=== PATIENT | male | born 1965 | race Caucasian/White ===

== ENCOUNTER 2019-11-17 06:50 | Inpatient (IN) ==
[~2019-11-17 06:50] MED LIST: LACTATED RINGERS 1,000 ML IV SCH
[2019-11-17] MEDS ORDERED: ceFAZolin 2,000 MG in PREMIX 1 EACH IV ONE (07:00)
[2019-11-17 07:20] LABS: Basophils % 0.3 % (0.0-0.8); Eosinophils % 0.2 % (0.00-10.9); Hematocrit 43.4 VOL% (42.0-52.0); Hemoglobin 14.5 GM/DL (14.0-18.0); Immature Granulocytes % 0.5 %; Immature Granulocytes Absolute 0.06 #; Lymphocytes # 2.1 10*3/uL (1.4-4.0); Lymphocytes % 17.2 % (21.2-54.2); Mean Corpuscular HGB Conc 33.4 GM/DL (32-36); Mean Corpuscular Volume 89.7 FL (87-102); Mean Platelet Volume 9.7 FL (9.6-12.0); Monocytes % 10.2 % (1.7-12.7); Neutrophils % 71.6 % (38.7-73.9); Platelet Count 237 T/CUMM (130-400); Red Blood Count 4.84 MC/CUMM (3.8-5.5); Red Cell Distribution Width 12.3 % (9.3-17.3); White Blood Count 12.4 T/CUMM (4-12)
[2019-11-17] MEDS ORDERED: GABAPENTIN 400 MG CAPSULE PO ONE (07:22)
[2019-11-17] MEDS ORDERED: FAMOTIDINE 20 MG TABLET PO ONE (07:22)
[2019-11-17 07:41] LABS: Calcium 9.3 MG/DL (8.5-10.1); Osmolality,Calculated 269.2 MOS/KG (273-304)
[2019-11-17] MEDS ORDERED: GABAPENTIN 400 MG CAPSULE ONE (07:58)
[2019-11-17] MEDS ORDERED: FAMOTIDINE 20 MG TABLET ONE (07:59)
[2019-11-17] MEDS ORDERED: DEXMEDETOMIDINE 200 MCG/2 ML VIAL ONE (10:41)
[2019-11-17] MEDS ORDERED: LIDOCAINE 1% 20 ML VIAL ONE (10:49)
[2019-11-17] MEDS ORDERED: DEXTROSE 50% 25 GM/50 ML VIAL IV PRN (12:13)
[2019-11-17] MEDS ORDERED: ONDANSETRON 4 MG/2 ML VIAL IV PRN (12:13)
[2019-11-17] MEDS ORDERED: PROMETHAZINE 25 MG/1 ML VIAL IM PRN (12:13)
[2019-11-17] MEDS ORDERED: GLUCAGON 1 MG VIAL IM PRN (12:13)
[2019-11-17] MEDS ORDERED: HYDROmorphone 2 MG/1 ML VIAL IV PRN (12:13)
[2019-11-17 12:30] LABS: Basophils % 0.4 % (0.0-0.8); Eosinophils % 0.3 % (0.00-10.9); Hemoglobin 12.6 GM/DL (14.0-18.0); Immature Granulocytes % 0.4 %; Immature Granulocytes Absolute 0.04 #; Lymphocytes # 1.9 10*3/uL (1.4-4.0); Lymphocytes % 18.4 % (21.2-54.2); Mean Corpuscular HGB Conc 33.2 GM/DL (32-36); Mean Corpuscular Volume 92.2 FL (87-102); Mean Platelet Volume 9.8 FL (9.6-12.0); Monocytes % 10.7 % (1.7-12.7); Neutrophils % 69.8 % (38.7-73.9); Platelet Count 210 T/CUMM (130-400); Red Blood Count 4.12 MC/CUMM (3.8-5.5); Red Cell Distribution Width 12.4 % (9.3-17.3); White Blood Count 10.1 T/CUMM (4-12)
[2019-11-17] MEDS: INSULIN REGULAR 100 UNIT/ML SUBCUT SCH ×3 (12:39→20:22)
[2019-11-17 12:46] LABS: Calcium 8.6 MG/DL (8.5-10.1)
[2019-11-17] MEDS: GABAPENTIN 100 MG CAPSULE PO SCH ×3 (13:19→20:22)
[2019-11-17] MEDS: LACTATED RINGERS 1,000 ML IV SCH ×2 (13:23→22:35)
[2019-11-17] MEDS ORDERED: MIDAZOLAM 2 MG/2 ML VIAL ONE (15:15)
[2019-11-17] MEDS ORDERED: fentaNYL 100 MCG/2 ML VIAL ONE (15:15)
[2019-11-17] MEDS: CLINDAMYCIN INJ 900 MG in PREMIX 1 EACH IV SCH (16:54)
[2019-11-17] MEDS: ATORVASTATIN 40 MG TABLET PO SCH (20:23)
[2019-11-17] MEDS: SIMVASTATIN 10 MG TABLET PO SCH (20:23)
[2019-11-18] MEDS: CLINDAMYCIN INJ 900 MG in PREMIX 1 EACH IV SCH (03:15)
[2019-11-18] MEDS ORDERED: CLINDAMYCIN INJ 900 MG in PREMIX 1 EACH IV SCH (03:30)
[2019-11-18] MEDS: ENOXAPARIN 40 MG/0.4 ML SYRINGE SUBCUT SCH (04:55)
[2019-11-18] MEDS: LACTATED RINGERS 1,000 ML IV SCH ×2 (05:33→14:42)
[2019-11-18 06:16] LABS: Basophils # 0.1 10*3/uL (0.0-0.2); Basophils % 0.5 % (0.0-0.8); Eosinophils # 0.1 10*3/uL (0.0-0.87); Eosinophils % 0.5 % (0.00-10.9); Hematocrit 39.7 VOL% (42.0-52.0); Immature Granulocytes % 0.5 %; Immature Granulocytes Absolute 0.05 #; Lymphocytes # 2.3 10*3/uL (1.4-4.0); Lymphocytes % 24.2 % (21.2-54.2); Mean Corpuscular HGB Conc 32.7 GM/DL (32-36); Mean Corpuscular Volume 91.5 FL (87-102); Mean Platelet Volume 9.9 FL (9.6-12.0); Monocytes % 11.8 % (1.7-12.7); Neutrophils % 62.5 % (38.7-73.9); Platelet Count 222 T/CUMM (130-400); Red Blood Count 4.34 MC/CUMM (3.8-5.5); Red Cell Distribution Width 12.3 % (9.3-17.3); White Blood Count 9.3 T/CUMM (4-12)
[2019-11-18 06:37] LABS: Calcium 9.1 MG/DL (8.5-10.1); Osmolality,Calculated 272.1 MOS/KG (273-304)
[2019-11-18] MEDS: INSULIN REGULAR 100 UNIT/ML SUBCUT SCH ×4 (09:09→21:21)
[2019-11-18] MEDS: GABAPENTIN 100 MG CAPSULE PO SCH ×4 (09:10→21:21)
[2019-11-18] MEDS: CITALOPRAM 40 MG TABLET PO SCH (09:10)
[2019-11-18] MEDS: CLOPIDOGREL 75 MG TABLET PO SCH (09:11)
[2019-11-18] MEDS: ATORVASTATIN 40 MG TABLET PO SCH (21:21)
[2019-11-18] MEDS: SIMVASTATIN 10 MG TABLET PO SCH (21:21)
[2019-11-19] MEDS: LACTATED RINGERS 1,000 ML IV SCH ×3 (00:18→16:54)
[2019-11-19] MEDS: ENOXAPARIN 40 MG/0.4 ML SYRINGE SUBCUT SCH (05:36)
[2019-11-19] MEDS: GABAPENTIN 100 MG CAPSULE PO SCH ×4 (09:30→20:51)
[2019-11-19] MEDS: CITALOPRAM 40 MG TABLET PO SCH (09:30)
[2019-11-19] MEDS: CLOPIDOGREL 75 MG TABLET PO SCH (09:30)
[2019-11-19] MEDS: INSULIN REGULAR 100 UNIT/ML SUBCUT SCH ×4 (09:30→23:05)
[2019-11-19] MEDS: ATORVASTATIN 40 MG TABLET PO SCH (20:51)
[2019-11-19] MEDS: SIMVASTATIN 10 MG TABLET PO SCH (20:53)
[2019-11-20] MEDS: LACTATED RINGERS 1,000 ML IV SCH ×3 (01:17→18:29)
[2019-11-20] MEDS: ENOXAPARIN 40 MG/0.4 ML SYRINGE SUBCUT SCH (05:09)
[2019-11-20] MEDS: CIPROFLOXACIN 500 MG TABLET PO SCH ×2 (10:04→20:17)
[2019-11-20] MEDS: NICOTINE 14 MG/24 HR PATCH TRANSDERM SCH (10:04)
[2019-11-20] MEDS: INSULIN REGULAR 100 UNIT/ML SUBCUT SCH ×4 (10:04→21:50)
[2019-11-20] MEDS: CLOPIDOGREL 75 MG TABLET PO SCH (10:05)
[2019-11-20] MEDS: GABAPENTIN 100 MG CAPSULE PO SCH ×4 (10:05→20:17)
[2019-11-20] MEDS: ATORVASTATIN 40 MG TABLET PO SCH (20:17)
[2019-11-20] MEDS: SIMVASTATIN 10 MG TABLET PO SCH (20:17)
[2019-11-21] MEDS: LACTATED RINGERS 1,000 ML IV SCH ×3 (02:30→16:07)
[2019-11-21] MEDS: ENOXAPARIN 40 MG/0.4 ML SYRINGE SUBCUT SCH (05:38)
[2019-11-21] MEDS: GABAPENTIN 100 MG CAPSULE PO SCH ×4 (08:45→20:59)
[2019-11-21] MEDS: NICOTINE 14 MG/24 HR PATCH TRANSDERM SCH (08:45)
[2019-11-21] MEDS: CIPROFLOXACIN 500 MG TABLET PO SCH ×2 (08:46→20:59)
[2019-11-21] MEDS: CLOPIDOGREL 75 MG TABLET PO SCH (08:46)
[2019-11-21] MEDS: INSULIN REGULAR 100 UNIT/ML SUBCUT SCH ×4 (10:55→20:59)
[2019-11-21] MEDS: ATORVASTATIN 40 MG TABLET PO SCH (20:59)
[2019-11-21] MEDS: SIMVASTATIN 10 MG TABLET PO SCH (20:59)
[2019-11-22] MEDS: LACTATED RINGERS 1,000 ML IV SCH ×2 (00:39→08:28)
[2019-11-22] MEDS: ENOXAPARIN 40 MG/0.4 ML SYRINGE SUBCUT SCH (05:29)
[2019-11-22] MEDS: INSULIN REGULAR 100 UNIT/ML SUBCUT SCH ×2 (08:20→12:31)
[2019-11-22] MEDS: CLOPIDOGREL 75 MG TABLET PO SCH (08:22)
[2019-11-22] MEDS: CIPROFLOXACIN 500 MG TABLET PO SCH (08:22)
[2019-11-22] MEDS: GABAPENTIN 100 MG CAPSULE PO SCH (08:22)
[2019-11-22] MEDS: NICOTINE 14 MG/24 HR PATCH TRANSDERM SCH (08:23)
[2019-11-22 12:31] VITALS: BP 132/76
== END 2019-11-22 12:55 | disposition hospice, home (50) | DRG 475 ==
LOC: N.OR 06:50 → N.SDSINP 06:53 → N.3E 12:08
PROVIDERS: ADMIT Surgery; ATTEND Surgery

== ENCOUNTER 2020-05-08 19:22 | Inpatient (IN) ==
[2020-05-08 19:59] LABS: Basophils # 0.1 10*3/uL (0.0-0.2); Basophils % 0.4 % (0.0-0.8); Eosinophils # 0.2 10*3/uL (0.0-0.87); Eosinophils % 1.2 % (0.00-10.9); Hematocrit 33.4 VOL% (42.0-52.0); Hemoglobin 10.6 GM/DL (14.0-18.0); Immature Granulocytes % 0.8 %; Lymphocytes # 2.3 10*3/uL (1.4-4.0); Lymphocytes % 18.1 % (21.2-54.2); Mean Corpuscular HGB Conc 31.7 GM/DL (32-36); Mean Corpuscular Volume 92.5 FL (87-102); Mean Platelet Volume 9.4 FL (9.6-12.0); Monocytes % 7.4 % (1.7-12.7); Neutrophils % 72.1 % (38.7-73.9); Platelet Count 401 T/CUMM (130-400); Red Blood Count 3.61 MC/CUMM (3.8-5.5); Red Cell Distribution Width 13.8 % (9.3-17.3); White Blood Count 12.6 T/CUMM (4-12)
[2020-05-08] MEDS ORDERED: ONDANSETRON 4 MG/2 ML VIAL IV PRN (20:01)
[2020-05-08] MEDS ORDERED: DEXTROSE 50% 25 GM/50 ML VIAL IV PRN (20:03)
[2020-05-08] MEDS ORDERED: GLUCAGON 1 MG VIAL IM PRN (20:03)
[2020-05-08 20:23] LABS: Albumin 2.5 G/DL (3.4-5.0); Bilirubin,Total 0.9 MG/DL (0.2-1.0); Calcium 8.8 MG/DL (8.5-10.1); Osmolality,Calculated 273.8 MOS/KG (273-304); Potassium 4.4 MMOL/L (3.5-5.1); Total Protein 7.9 G/DL (6.4-8.3)
[2020-05-08] MEDS: DEXTROSE 5% NACL 0.45% 1,000 ML IV SCH (21:05)
[2020-05-08] MEDS: VANCOMYCIN INJ 750 MG in SODIUM CHLORIDE 0.9% 250 ML IV SCH (22:53)
[2020-05-08] MEDS: INSULIN REGULAR 100 UNIT/ML SUBCUT SCH (23:47)
[2020-05-09] MEDS ORDERED: INFLUENZA VIRUS VACCINE 0.5 ML SYRINGE IM ONE (01:52)
[2020-05-09] MEDS ORDERED: PNEUMOCOCCAL VACCINE (13 VALENT) 0.5 ML SYRINGE IM ONE (01:52)
[2020-05-09] MEDS: DEXTROSE 5% NACL 0.45% 1,000 ML IV SCH ×3 (04:50→21:42)
[2020-05-09] MEDS: INSULIN REGULAR 100 UNIT/ML SUBCUT SCH ×3 (05:32→17:34)
[2020-05-09 05:41] LABS: Basophils % 0.4 % (0.0-0.8); Eosinophils # 0.2 10*3/uL (0.0-0.87); Eosinophils % 1.7 % (0.00-10.9); Hematocrit 33.5 VOL% (42.0-52.0); Hemoglobin 10.6 GM/DL (14.0-18.0); Immature Granulocytes % 0.8 %; Immature Granulocytes Absolute 0.09 #; Lymphocytes # 1.9 10*3/uL (1.4-4.0); Lymphocytes % 17.3 % (21.2-54.2); Mean Corpuscular HGB Conc 31.6 GM/DL (32-36); Mean Platelet Volume 9.2 FL (9.6-12.0); Monocytes % 8.8 % (1.7-12.7); Platelet Count 381 T/CUMM (130-400); Red Blood Count 3.64 MC/CUMM (3.8-5.5); Red Cell Distribution Width 13.6 % (9.3-17.3); White Blood Count 10.9 T/CUMM (4-12)
[2020-05-09 06:07] LABS: Alanine Aminotransferase 103 U/L (16-61); Albumin 2.4 G/DL (3.4-5.0); Alkaline Phosphatase 82 U/L (45-117); Aspartate Amino Transferase 73 U/L (0-37); Bilirubin,Total < 0.39 MG/DL (0.2-1.0); Blood Urea Nitrogen 10 MG/DL (7-18); Calcium 8.7 MG/DL (8.5-10.1); Carbon Dioxide 25 MMOL/L (21-32); Estimated Glom Filtration Rate 125 ML/MIN; Glucose 159 MG/DL (74-106); Osmolality,Calculated 276.7 MOS/KG (273-304); Potassium 4.3 MMOL/L (3.5-5.1); Sodium 138 MMOL/L (136-145); Total Protein 7.6 G/DL (6.4-8.3)
[2020-05-09] MEDS ORDERED: MIDAZOLAM 2 MG/2 ML VIAL ONE (07:41)
[2020-05-09] MEDS ORDERED: propofoL 200 MG/20 ML VIAL IV ONE ×2 (07:41→08:57)
[2020-05-09] MEDS ORDERED: fentaNYL 100 MCG/2 ML VIAL ONE (07:41)
[2020-05-09] MEDS ORDERED: LIDOCAINE 2% 5 ML VIAL ONE (07:41)
[2020-05-09] MEDS ORDERED: LIDOCAINE 1% 20 ML VIAL ONE (08:00)
[2020-05-09] MEDS ORDERED: LIDOCAINE 1%/EPI INJ 20 ML VIAL ONE (08:00)
[2020-05-09] MEDS ORDERED: BUPIVACAINE MPF 0.25% 30 ML VIAL ONE (08:00)
[2020-05-09] MEDS: PANTOPRAZOLE 40 MG VIAL IV SCH (08:03)
[2020-05-09] MEDS ORDERED: LACTATED RINGERS 1,000 ML IV SCH (08:30)
[2020-05-09] MEDS ORDERED: ONDANSETRON 4 MG/2 ML VIAL IV PRN (09:47)
[2020-05-09] MEDS: HYDROmorphone 2 MG/1 ML VIAL IV PRN ×2 (09:50→09:55)
[2020-05-09] MEDS: VANCOMYCIN INJ 750 MG in SODIUM CHLORIDE 0.9% 250 ML IV SCH (10:29)
[2020-05-09] MEDS: PIPERACILLIN/TAZOBACTAM 3,375 MG in SODIUM CHLORIDE 0.9% 100 ML IV SCH ×2 (12:18→20:43)
[2020-05-09] MEDS: GABAPENTIN 100 MG CAPSULE PO SCH ×3 (14:45→20:15)
[2020-05-09] MEDS: VANCOMYCIN INJ 1,500 MG in SODIUM CHLORIDE 0.9% 500 ML IV SCH (16:41)
[2020-05-09] MEDS: ATORVASTATIN 40 MG TABLET PO SCH (20:43)
[2020-05-10] MEDS: INSULIN REGULAR 100 UNIT/ML SUBCUT SCH ×4 (00:22→18:19)
[2020-05-10] MEDS: PIPERACILLIN/TAZOBACTAM 3,375 MG in SODIUM CHLORIDE 0.9% 100 ML IV SCH ×3 (04:48→20:45)
[2020-05-10] MEDS: VANCOMYCIN INJ 1,500 MG in SODIUM CHLORIDE 0.9% 500 ML IV SCH ×2 (04:49→16:46)
[2020-05-10] MEDS: CITALOPRAM 40 MG TABLET PO SCH (08:45)
[2020-05-10] MEDS: GABAPENTIN 100 MG CAPSULE PO SCH ×4 (08:45→20:47)
[2020-05-10] MEDS: lisinopriL 20 MG TABLET PO SCH (08:45)
[2020-05-10] MEDS: ASCORBIC ACID 500 MG TABLET PO SCH (08:45)
[2020-05-10] MEDS: DEXTROSE 5% NACL 0.45% 1,000 ML IV SCH (08:47)
[2020-05-10] MEDS: PANTOPRAZOLE 40 MG VIAL IV SCH (09:50)
[2020-05-10] MEDS: ATORVASTATIN 40 MG TABLET PO SCH (20:47)
[2020-05-11] MEDS: INSULIN REGULAR 100 UNIT/ML SUBCUT SCH ×4 (01:01→17:00)
[2020-05-11] MEDS: VANCOMYCIN INJ 1,500 MG in SODIUM CHLORIDE 0.9% 500 ML IV SCH ×2 (03:25→16:14)
[2020-05-11] MEDS: PIPERACILLIN/TAZOBACTAM 3,375 MG in SODIUM CHLORIDE 0.9% 100 ML IV SCH ×2 (08:59→16:23)
[2020-05-11] MEDS: ASCORBIC ACID 500 MG TABLET PO SCH (09:01)
[2020-05-11] MEDS: lisinopriL 20 MG TABLET PO SCH (09:01)
[2020-05-11] MEDS: PANTOPRAZOLE 40 MG VIAL IV SCH (09:01)
[2020-05-11] MEDS: CITALOPRAM 40 MG TABLET PO SCH (09:02)
[2020-05-11] MEDS: GABAPENTIN 100 MG CAPSULE PO SCH ×4 (09:09→20:27)
[2020-05-11] MEDS: ATORVASTATIN 40 MG TABLET PO SCH (20:27)
[2020-05-12] MEDS: PIPERACILLIN/TAZOBACTAM 3,375 MG in SODIUM CHLORIDE 0.9% 100 ML IV SCH ×3 (00:44→18:30)
[2020-05-12] MEDS: INSULIN REGULAR 100 UNIT/ML SUBCUT SCH ×4 (01:44→18:31)
[2020-05-12] MEDS: VANCOMYCIN INJ 1,500 MG in SODIUM CHLORIDE 0.9% 500 ML IV SCH ×2 (04:56→16:09)
[2020-05-12] MEDS: GABAPENTIN 100 MG CAPSULE PO SCH ×4 (08:23→21:11)
[2020-05-12] MEDS: PANTOPRAZOLE 40 MG VIAL IV SCH (08:23)
[2020-05-12] MEDS: ASCORBIC ACID 500 MG TABLET PO SCH (08:23)
[2020-05-12] MEDS: CITALOPRAM 40 MG TABLET PO SCH (08:23)
[2020-05-12] MEDS: lisinopriL 20 MG TABLET PO SCH (08:23)
[2020-05-12] MEDS: ATORVASTATIN 40 MG TABLET PO SCH (21:11)
[2020-05-13] MEDS: INSULIN REGULAR 100 UNIT/ML SUBCUT SCH ×4 (00:20→18:20)
[2020-05-13] MEDS: PIPERACILLIN/TAZOBACTAM 3,375 MG in SODIUM CHLORIDE 0.9% 100 ML IV SCH ×2 (00:21→09:49)
[2020-05-13] MEDS: VANCOMYCIN INJ 1,500 MG in SODIUM CHLORIDE 0.9% 500 ML IV SCH (04:50)
[2020-05-13 05:50] LABS: Basophils % 0.4 % (0.0-0.8); Eosinophils # 0.3 10*3/uL (0.0-0.87); Eosinophils % 2.8 % (0.00-10.9); Hematocrit 32.6 VOL% (42.0-52.0); Hemoglobin 10.6 GM/DL (14.0-18.0); Immature Granulocytes % 1.8 %; Lymphocytes # 2.6 10*3/uL (1.4-4.0); Mean Corpuscular HGB Conc 32.5 GM/DL (32-36); Mean Corpuscular Volume 89.6 FL (87-102); Mean Platelet Volume 8.9 FL (9.6-12.0); Monocytes % 10.2 % (1.7-12.7); Neutrophils % 61.8 % (38.7-73.9); Platelet Count 443 T/CUMM (130-400); Red Blood Count 3.64 MC/CUMM (3.8-5.5); Red Cell Distribution Width 13.7 % (9.3-17.3); White Blood Count 11.4 T/CUMM (4-12)
[2020-05-13 06:12] LABS: Calcium 8.8 MG/DL (8.5-10.1); Osmolality,Calculated 278.5 MOS/KG (273-304); Potassium 3.7 MMOL/L (3.5-5.1)
[2020-05-13] MEDS ORDERED: DEXTROSE 50% 25 GM/50 ML VIAL IV PRN (08:25)
[2020-05-13] MEDS ORDERED: GLUCAGON 1 MG VIAL IM PRN (08:25)
[2020-05-13] MEDS: ASCORBIC ACID 500 MG TABLET PO SCH (09:47)
[2020-05-13] MEDS: CIPROFLOXACIN 500 MG TABLET PO SCH ×2 (09:47→21:31)
[2020-05-13] MEDS: lisinopriL 20 MG TABLET PO SCH (09:47)
[2020-05-13] MEDS: GABAPENTIN 100 MG CAPSULE PO SCH ×4 (09:48→21:31)
[2020-05-13] MEDS: PANTOPRAZOLE 40 MG VIAL IV SCH (09:48)
[2020-05-13] MEDS: CITALOPRAM 40 MG TABLET PO SCH (09:48)
[2020-05-13] MEDS: ATORVASTATIN 40 MG TABLET PO SCH (21:31)
[2020-05-14] MEDS: INSULIN REGULAR 100 UNIT/ML SUBCUT SCH ×4 (02:28→17:45)
[2020-05-14] MEDS: CIPROFLOXACIN 500 MG TABLET PO SCH ×2 (08:56→20:33)
[2020-05-14] MEDS: CITALOPRAM 40 MG TABLET PO SCH (08:56)
[2020-05-14] MEDS: PANTOPRAZOLE 40 MG VIAL IV SCH (08:57)
[2020-05-14] MEDS: ASCORBIC ACID 500 MG TABLET PO SCH (08:57)
[2020-05-14] MEDS: lisinopriL 20 MG TABLET PO SCH (08:57)
[2020-05-14] MEDS: GABAPENTIN 100 MG CAPSULE PO SCH ×4 (08:57→20:33)
[2020-05-14] MEDS ORDERED: ROPIVACAINE 0.5% 30 ML VIAL ONE (11:11)
[2020-05-14] MEDS ORDERED: LIDOCAINE 1% 5 ML VIAL ONE (11:11)
[2020-05-14] MEDS ORDERED: MIDAZOLAM 2 MG/2 ML VIAL ONE (11:13)
[2020-05-14] MEDS ORDERED: fentaNYL 100 MCG/2 ML VIAL ONE (11:13)
[2020-05-14] MEDS ORDERED: LACTATED RINGERS 1,000 ML IV SCH (11:30)
[2020-05-14] MEDS ORDERED: ePHEDrine 50 MG/ML VIAL ONE (12:00)
[2020-05-14] MEDS ORDERED: propofoL 200 MG/20 ML VIAL IV ONE (12:08)
[2020-05-14] MEDS ORDERED: LIDOCAINE 2% 5 ML VIAL ONE (12:08)
[2020-05-14] MEDS ORDERED: PHENYLEPHRINE 1 MG/10 ML SYRINGE IV ONE (12:08)
[2020-05-14] MEDS ORDERED: LACTATED RINGERS 1,000 ML IV ONE (12:13)
[2020-05-14] MEDS ORDERED: ONDANSETRON 4 MG/2 ML VIAL ONE (12:36)
[2020-05-14] MEDS ORDERED: ACETAMINOPHEN 1,000 MG/100 ML VIAL IV ONE (12:49)
[2020-05-14] MEDS ORDERED: SEVOFLURANE 1 UNIT/15 MINUTE INH ONE (12:53)
[2020-05-14] MEDS ORDERED: HYDROmorphone 2 MG/1 ML VIAL IV PRN (13:11)
[2020-05-14] MEDS ORDERED: ONDANSETRON 4 MG/2 ML VIAL IV PRN (13:11)
[2020-05-14] MEDS ORDERED: MEPERIDINE 25 MG/1 ML VIAL IV PRN (13:11)
[2020-05-14] MEDS ORDERED: diphenhydrAMINE 50 MG/1 ML VIAL IV PRN (13:11)
[2020-05-14] MEDS ORDERED: PROMETHAZINE INJ 25 MG in SODIUM CHLORIDE 0.9% 50 ML IV PRN (13:11)
[2020-05-14] MEDS: LACTATED RINGERS 1,000 ML IV SCH ×2 (13:50→21:49)
[2020-05-14] MEDS: ATORVASTATIN 40 MG TABLET PO SCH (20:33)
[2020-05-14] MEDS: HYDROmorphone 2 MG/1 ML VIAL IV PRN (22:41)
[2020-05-15] MEDS: LACTATED RINGERS 1,000 ML IV SCH (00:48)
[2020-05-15] MEDS: INSULIN REGULAR 100 UNIT/ML SUBCUT SCH ×4 (00:48→18:40)
[2020-05-15] MEDS: HYDROmorphone 2 MG/1 ML VIAL IV PRN ×4 (04:19→16:25)
[2020-05-15 06:34] LABS: Basophils # 0.1 10*3/uL (0.0-0.2); Basophils % 0.3 % (0.0-0.8); Eosinophils # 0.2 10*3/uL (0.0-0.87); Eosinophils % 1.1 % (0.00-10.9); Hematocrit 35.2 VOL% (42.0-52.0); Hemoglobin 11.3 GM/DL (14.0-18.0); Immature Granulocytes % 1.2 %; Immature Granulocytes Absolute 0.22 #; Lymphocytes # 2.1 10*3/uL (1.4-4.0); Lymphocytes % 11.5 % (21.2-54.2); Mean Corpuscular HGB Conc 32.1 GM/DL (32-36); Mean Corpuscular Volume 91.7 FL (87-102); Mean Platelet Volume 9.2 FL (9.6-12.0); Monocytes % 8.2 % (1.7-12.7); Neutrophils % 77.7 % (38.7-73.9); Platelet Count 487 T/CUMM (130-400); Red Blood Count 3.84 MC/CUMM (3.8-5.5); Red Cell Distribution Width 14.3 % (9.3-17.3); White Blood Count 18.6 T/CUMM (4-12)
[2020-05-15 06:56] LABS: Calcium 9.5 MG/DL (8.5-10.1); Osmolality,Calculated 281.8 MOS/KG (273-304); Potassium 4.5 MMOL/L (3.5-5.1)
[2020-05-15] MEDS: CIPROFLOXACIN 500 MG TABLET PO SCH ×2 (09:01→21:37)
[2020-05-15] MEDS: CITALOPRAM 40 MG TABLET PO SCH (09:01)
[2020-05-15] MEDS: lisinopriL 20 MG TABLET PO SCH (09:01)
[2020-05-15] MEDS: GABAPENTIN 100 MG CAPSULE PO SCH ×3 (09:01→21:37)
[2020-05-15] MEDS: ASCORBIC ACID 500 MG TABLET PO SCH (09:02)
[2020-05-15] MEDS: PANTOPRAZOLE 40 MG VIAL IV SCH (09:03)
[2020-05-15] MEDS: ATORVASTATIN 40 MG TABLET PO SCH (21:37)
[2020-05-16] MEDS: INSULIN REGULAR 100 UNIT/ML SUBCUT SCH ×4 (00:37→17:43)
[2020-05-16 05:55] LABS: Basophils % 0.2 % (0.0-0.8); Eosinophils # 0.2 10*3/uL (0.0-0.87); Eosinophils % 1.1 % (0.00-10.9); Hematocrit 35.4 VOL% (42.0-52.0); Hemoglobin 11.2 GM/DL (14.0-18.0); Immature Granulocytes % 1.1 %; Immature Granulocytes Absolute 0.14 #; Lymphocytes # 1.9 10*3/uL (1.4-4.0); Lymphocytes % 14.7 % (21.2-54.2); Mean Corpuscular HGB Conc 31.6 GM/DL (32-36); Mean Corpuscular Volume 91.7 FL (87-102); Mean Platelet Volume 9.2 FL (9.6-12.0); Monocytes % 13.2 % (1.7-12.7); Neutrophils % 69.7 % (38.7-73.9); Platelet Count 440 T/CUMM (130-400); Red Blood Count 3.86 MC/CUMM (3.8-5.5); Red Cell Distribution Width 14.4 % (9.3-17.3); White Blood Count 13.1 T/CUMM (4-12)
[2020-05-16] MEDS: HYDROmorphone 2 MG/1 ML VIAL IV PRN ×2 (06:14→08:52)
[2020-05-16 06:35] LABS: Calcium 9.3 MG/DL (8.5-10.1); Osmolality,Calculated 281.7 MOS/KG (273-304); Potassium 3.8 MMOL/L (3.5-5.1)
[2020-05-16] MEDS ORDERED: SODIUM HYPOCHLORITE 0.25% IRRIG 473 ML BOTTLE TOP SCH (09:00)
[2020-05-16] MEDS: PANTOPRAZOLE 40 MG VIAL IV SCH (09:33)
[2020-05-16] MEDS: lisinopriL 20 MG TABLET PO SCH (09:56)
[2020-05-16] MEDS: ASCORBIC ACID 500 MG TABLET PO SCH (09:56)
[2020-05-16] MEDS: GABAPENTIN 100 MG CAPSULE PO SCH ×3 (09:57→22:20)
[2020-05-16] MEDS: CIPROFLOXACIN 500 MG TABLET PO SCH ×2 (09:57→22:20)
[2020-05-16] MEDS: SODIUM HYPOCHLORITE 0.25% IRRIG 473 ML BOTTLE TOP SCH (09:57)
[2020-05-16] MEDS: CITALOPRAM 40 MG TABLET PO SCH (09:57)
[2020-05-16] MEDS: KETOROLAC 15 MG/1 ML VIAL IV SCH ×3 (10:34→22:24)
[2020-05-16] MEDS: ATORVASTATIN 40 MG TABLET PO SCH (22:20)
[2020-05-17] MEDS: INSULIN REGULAR 100 UNIT/ML SUBCUT SCH ×3 (01:13→14:01)
[2020-05-17] MEDS: KETOROLAC 15 MG/1 ML VIAL IV SCH ×2 (05:22→11:07)
[2020-05-17] MEDS: CIPROFLOXACIN 500 MG TABLET PO SCH (11:06)
[2020-05-17] MEDS: CITALOPRAM 40 MG TABLET PO SCH (11:06)
[2020-05-17] MEDS: GABAPENTIN 100 MG CAPSULE PO SCH (11:07)
[2020-05-17] MEDS: ASCORBIC ACID 500 MG TABLET PO SCH (11:07)
[2020-05-17] MEDS: PANTOPRAZOLE 40 MG VIAL IV SCH (11:08)
[2020-05-17] MEDS: SODIUM HYPOCHLORITE 0.25% IRRIG 473 ML BOTTLE TOP SCH (11:10)
[2020-05-17 13:43] VITALS: BP 91/58
== END 2020-05-17 15:20 | DRG 240 ==
LOC: EDUNIT# → EDBD → N.ED 19:22 → N.EDINP 19:59 → N.3E 22:05
PROVIDERS: ADMIT Surgery; ATTEND Surgery

== ENCOUNTER 2022-05-11 10:46 | Inpatient (IN) ==
[2022-05-11] MEDS ORDERED: SODIUM CHLORIDE 0.9% 1,000 ML IV STA (11:01)
[2022-05-11 11:28] LABS: Basophils # 0.1 10*3/uL (0.0-0.2); Basophils % 0.2 % (0.0-0.8); Eosinophils % 0.1 % (0.00-10.9); Hematocrit 35.1 VOL% (42.0-52.0); Hemoglobin 11.9 GM/DL (14.0-18.0); Immature Granulocytes % 2.7 %; Immature Granulocytes Absolute 1.05 #; Lymphocytes # 1.4 10*3/uL (1.4-4.0); Lymphocytes % 3.7 % (21.2-54.2); Mean Corpuscular HGB Conc 33.9 GM/DL (32-36); Mean Corpuscular Volume 84.8 FL (87-102); Mean Platelet Volume 11.4 FL (9.6-12.0); Monocytes # 2.1 10*3/uL (0.11-0.8); Monocytes % 5.5 % (1.7-12.7); Neutrophils % 87.8 % (38.7-73.9); Platelet Count 327 T/CUMM (130-400); Red Blood Count 4.14 MC/CUMM (3.8-5.5); Red Cell Distribution Width 12.9 % (9.3-17.3); White Blood Count 38.75 T/CUMM (4-12)
[2022-05-11 11:56] LABS: Albumin 1.4 G/DL (3.4-5.0); Bilirubin,Total 1.5 MG/DL (0.20-1.00); Calcium 8.4 MG/DL (8.5-10.1); Osmolality,Calculated 275.4 MOS/KG (273-304); Potassium 3.5 MMOL/L (3.5-5.1); Total Protein 7.3 G/DL (6.4-8.2)
[2022-05-11] MEDS ORDERED: PIPERACILLIN/TAZOBACTAM 3,375 MG in SODIUM CHLORIDE 0.9% 100 ML IV STA (12:02)
[2022-05-11] MEDS ORDERED: VANCOMYCIN INJ 1,000 MG in SODIUM CHLORIDE 0.9% 250 ML IV STA (12:03)
[2022-05-11 12:07] LABS: Lymphocytes 2 % (20-55); Total Cells Counted 100
[2022-05-11 12:08] LABS: Platelet Estimate Normal
[2022-05-11 12:09] LABS: Microcytosis 1+
[2022-05-11] MEDS ORDERED: ALBUTEROL/IPRATROPIUM 3 ML NEB RESP TX PRN (12:51)
[2022-05-11] MEDS ORDERED: HYDROmorphone 1 MG/1 ML SYRINGE IV PRN ×2 (12:51)
[2022-05-11] MEDS ORDERED: ACETAMINOPHEN 325 MG TABLET PO PRN (12:51)
[2022-05-11] MEDS ORDERED: BISACODYL 5 MG TABLET PO PRN (12:51)
[2022-05-11] MEDS ORDERED: ONDANSETRON 4 MG/2 ML VIAL IV PRN (12:51)
[2022-05-11] MEDS ORDERED: MIDAZOLAM 2 MG/2 ML VIAL ONE (13:19)
[2022-05-11] MEDS ORDERED: LIDOCAINE 2% 5 ML VIAL ONE ×2 (13:19→13:23)
[2022-05-11] MEDS ORDERED: propofoL 200 MG/20 ML VIAL IV ONE (13:19)
[2022-05-11] MEDS ORDERED: fentaNYL 100 MCG/2 ML VIAL ONE (13:20)
[2022-05-11] MEDS ORDERED: ROPIVACAINE 0.5% 30 ML VIAL ONE (13:22)
[2022-05-11] MEDS ORDERED: DEXAMETHASONE 4 MG/1 ML VIAL ONE ×2 (13:22→14:22)
[2022-05-11] MEDS ORDERED: DEXTROSE 10% 250 ML BAG IV PRN (13:23)
[2022-05-11] MEDS ORDERED: GLUCAGON 1 MG VIAL IM PRN (13:23)
[2022-05-11] MEDS ORDERED: LIDOCAINE 1% 5 ML VIAL ONE (13:23)
[2022-05-11] MEDS ORDERED: NICOTINE 21 MG/24 HR PATCH TRANSDERM PRN (13:25)
[2022-05-11] MEDS ORDERED: ONDANSETRON 4 MG/2 ML VIAL ONE (14:22)
[2022-05-11] MEDS ORDERED: LACTATED RINGERS 1,000 ML IV ONE (14:22)
[2022-05-11] MEDS ORDERED: SUCCINYLCHOLINE 200 MG/10 ML VIAL ONE (14:22)
[2022-05-11] MEDS ORDERED: PHENYLEPHRINE 1 MG/10 ML SYRINGE IV ONE (14:22)
[2022-05-11] MEDS ORDERED: SEVOFLURANE 1 UNIT/15 MINUTE INH ONE (14:22)
[2022-05-11] MEDS: LACTATED RINGERS 1,000 ML IV SCH (18:50)
[2022-05-11] MEDS: INSULIN LISPRO 100 UNIT/ML SUBCUT SCH (18:50)
[2022-05-11] MEDS: KETOROLAC 30 MG/1 ML VIAL IV PRN (21:15)
[2022-05-11] MEDS: GABAPENTIN 300 MG CAPSULE PO SCH (21:15)
[2022-05-11] MEDS: ATORVASTATIN 40 MG TABLET PO SCH (21:15)
[2022-05-11] MEDS: PIPERACILLIN/TAZOBACTAM 3,375 MG in SODIUM CHLORIDE 0.9% 100 ML IV SCH (21:18)
[2022-05-12] MEDS: INSULIN LISPRO 100 UNIT/ML SUBCUT SCH ×6 (02:13→20:58)
[2022-05-12] MEDS: VANCOMYCIN INJ 1,500 MG in SODIUM CHLORIDE 0.9% 500 ML IV SCH ×2 (02:13→13:40)
[2022-05-12 04:52] LABS: Basophils % 0.2 % (0.0-0.8); Hematocrit 35.5 VOL% (42.0-52.0); Hemoglobin 11.8 GM/DL (14.0-18.0); Immature Granulocytes % 1.4 %; Immature Granulocytes Absolute 0.27 #; Lymphocytes # 1.2 10*3/uL (1.4-4.0); Lymphocytes % 5.8 % (21.2-54.2); Mean Corpuscular HGB Conc 33.2 GM/DL (32-36); Mean Corpuscular Volume 85.5 FL (87-102); Mean Platelet Volume 12.5 FL (9.6-12.0); Monocytes # 0.4 10*3/uL (0.11-0.8); Neutrophils % 90.6 % (38.7-73.9); Platelet Count 293 T/CUMM (130-400); Red Blood Count 4.15 MC/CUMM (3.8-5.5); White Blood Count 19.73 T/CUMM (4-12)
[2022-05-12 05:13] LABS: Calcium 8.3 MG/DL (8.5-10.1); Osmolality,Calculated 287.8 MOS/KG (273-304); Potassium 5.2 MMOL/L (3.5-5.1)
[2022-05-12] MEDS: PIPERACILLIN/TAZOBACTAM 3,375 MG in SODIUM CHLORIDE 0.9% 100 ML IV SCH ×3 (05:13→20:59)
[2022-05-12 05:19] LABS: Band Neutrophils 1 % (0-10); Hypochromia Slight; Lymphocytes 7 % (20-55); Microcytosis Slight; Platelet Estimate Adequate; Total Cells Counted 100
[2022-05-12] MEDS: LACTATED RINGERS 1,000 ML IV SCH ×3 (07:57→18:31)
[2022-05-12] MEDS ORDERED: SODIUM CHLORIDE 0.9% 1,000 ML IV ONE (08:15)
[2022-05-12] MEDS: hydroCHLOROthiazide 25 MG TABLET PO SCH (09:14)
[2022-05-12] MEDS: GABAPENTIN 300 MG CAPSULE PO SCH ×2 (09:14→20:58)
[2022-05-12] MEDS: PANTOPRAZOLE 40 MG TABLET PO SCH (09:14)
[2022-05-12] MEDS: lisinopriL 20 MG TABLET PO SCH (09:14)
[2022-05-12] MEDS: ESCITALOPRAM 10 MG TABLET PO SCH (09:14)
[2022-05-12] MEDS: INSULIN GLARGINE 100 UNIT/ML SUBCUT SCH (09:58)
[2022-05-12 14:18] LABS: Calcium 7.9 MG/DL (8.5-10.1); Osmolality,Calculated 295.7 MOS/KG (273-304); Potassium 2.9 MMOL/L (3.5-5.1)
[2022-05-12] MEDS: ATORVASTATIN 40 MG TABLET PO SCH (20:58)
[2022-05-13] MEDS: INSULIN LISPRO 100 UNIT/ML SUBCUT SCH ×6 (00:53→21:19)
[2022-05-13] MEDS: LACTATED RINGERS 1,000 ML IV SCH (01:21)
[2022-05-13] MEDS: VANCOMYCIN INJ 1,500 MG in SODIUM CHLORIDE 0.9% 500 ML IV SCH ×2 (01:28→13:47)
[2022-05-13] MEDS: KETOROLAC 30 MG/1 ML VIAL IV PRN (01:28)
[2022-05-13] MEDS: PIPERACILLIN/TAZOBACTAM 3,375 MG in SODIUM CHLORIDE 0.9% 100 ML IV SCH ×3 (04:28→23:06)
[2022-05-13 08:40] LABS: Calcium 7.5 MG/DL (8.5-10.1); Osmolality,Calculated 286.8 MOS/KG (273-304); Potassium 3.3 MMOL/L (3.5-5.1)
[2022-05-13] MEDS: SODIUM HYPOCHLORITE 0.25% IRRIG 473 ML BOTTLE TOP SCH (09:14)
[2022-05-13] MEDS: INSULIN GLARGINE 100 UNIT/ML SUBCUT SCH (09:14)
[2022-05-13] MEDS: GABAPENTIN 300 MG CAPSULE PO SCH ×2 (09:14→21:16)
[2022-05-13] MEDS: ESCITALOPRAM 10 MG TABLET PO SCH (09:14)
[2022-05-13] MEDS: hydroCHLOROthiazide 25 MG TABLET PO SCH (09:14)
[2022-05-13] MEDS: PANTOPRAZOLE 40 MG TABLET PO SCH (09:15)
[2022-05-13] MEDS: lisinopriL 20 MG TABLET PO SCH (09:15)
[2022-05-13] MEDS ORDERED: TUBERCULIN SKIN TEST 0.1 ML SYRINGE INTRADERM ONE (10:00)
[2022-05-13] MEDS ORDERED: POTASSIUM CHLORIDE 20 MEQ TABLET PO ONE (14:30)
[2022-05-13] MEDS: ATORVASTATIN 40 MG TABLET PO SCH (21:16)
[2022-05-14] MEDS: INSULIN LISPRO 100 UNIT/ML SUBCUT SCH ×6 (00:44→20:54)
[2022-05-14] MEDS: PIPERACILLIN/TAZOBACTAM 3,375 MG in SODIUM CHLORIDE 0.9% 100 ML IV SCH ×3 (04:47→20:53)
[2022-05-14 04:49] LABS: Basophils % 0.3 % (0.0-0.8); Eosinophils # 0.1 10*3/uL (0.0-0.87); Hematocrit 29.1 VOL% (42.0-52.0); Hemoglobin 9.4 GM/DL (14.0-18.0); Immature Granulocytes Absolute 0.19 #; Lymphocytes # 3.4 10*3/uL (1.4-4.0); Lymphocytes % 36.3 % (21.2-54.2); Mean Corpuscular HGB Conc 32.3 GM/DL (32-36); Mean Corpuscular Volume 87.1 FL (87-102); Mean Platelet Volume 11.2 FL (9.6-12.0); Monocytes # 0.6 10*3/uL (0.11-0.8); Monocytes % 5.9 % (1.7-12.7); Neutrophils % 54.5 % (38.7-73.9); Platelet Count 351 T/CUMM (130-400); Red Blood Count 3.34 MC/CUMM (3.8-5.5); Red Cell Distribution Width 13.2 % (9.3-17.3); White Blood Count 9.46 T/CUMM (4-12)
[2022-05-14 05:08] LABS: Calcium 7.7 MG/DL (8.5-10.1); Osmolality,Calculated 286.3 MOS/KG (273-304); Potassium 3.5 MMOL/L (3.5-5.1)
[2022-05-14] MEDS: hydroCHLOROthiazide 25 MG TABLET PO SCH (11:00)
[2022-05-14] MEDS: ESCITALOPRAM 10 MG TABLET PO SCH (11:01)
[2022-05-14] MEDS: PANTOPRAZOLE 40 MG TABLET PO SCH (11:01)
[2022-05-14] MEDS: GABAPENTIN 300 MG CAPSULE PO SCH ×2 (11:01→20:52)
[2022-05-14] MEDS: lisinopriL 20 MG TABLET PO SCH (11:01)
[2022-05-14] MEDS: SODIUM HYPOCHLORITE 0.25% IRRIG 473 ML BOTTLE TOP SCH (11:02)
[2022-05-14] MEDS ORDERED: INSULIN LISPRO 100 UNIT/ML SUBCUT SCH (11:30)
[2022-05-14] MEDS: INSULIN GLARGINE 100 UNIT/ML SUBCUT SCH (12:09)
[2022-05-14] MEDS: VANCOMYCIN INJ 1,500 MG in SODIUM CHLORIDE 0.9% 500 ML IV SCH (12:15)
[2022-05-14] MEDS ORDERED: fentaNYL 100 MCG/2 ML VIAL ONE (16:23)
[2022-05-14] MEDS ORDERED: LIDOCAINE 2% 5 ML VIAL ONE (16:23)
[2022-05-14] MEDS ORDERED: propofoL 200 MG/20 ML VIAL IV ONE (16:23)
[2022-05-14] MEDS ORDERED: SEVOFLURANE 1 UNIT/15 MINUTE INH ONE (16:23)
[2022-05-14] MEDS ORDERED: PHENYLEPHRINE 1 MG/10 ML SYRINGE IV ONE (16:28)
[2022-05-14] MEDS ORDERED: diphenhydrAMINE 50 MG/1 ML VIAL IV PRN ×2 (17:36→17:47)
[2022-05-14] MEDS ORDERED: HYDROmorphone 1 MG/1 ML SYRINGE IV PRN ×2 (17:36→17:47)
[2022-05-14] MEDS ORDERED: PROMETHAZINE INJ 25 MG in SODIUM CHLORIDE 0.9% 50 ML IV PRN ×2 (17:36→17:47)
[2022-05-14] MEDS ORDERED: ONDANSETRON 4 MG/2 ML VIAL IV PRN ×2 (17:36→17:47)
[2022-05-14] MEDS ORDERED: MEPERIDINE 50 MG/1 ML VIAL ONE (17:41)
[2022-05-14] MEDS: MEPERIDINE 25 MG/1 ML VIAL IV PRN ×2 (17:45→17:55)
[2022-05-14] MEDS ORDERED: MEPERIDINE 25 MG/1 ML VIAL IV PRN (17:47)
[2022-05-14] MEDS ORDERED: PROMETHAZINE 25 MG/1 ML VIAL ONE (17:49)
[2022-05-14] MEDS: HYDROmorphone 1 MG/1 ML SYRINGE IV PRN (19:43)
[2022-05-14] MEDS: ATORVASTATIN 40 MG TABLET PO SCH (20:52)
[2022-05-15] MEDS: HYDROmorphone 1 MG/1 ML SYRINGE IV PRN ×2 (00:31→05:04)
[2022-05-15] MEDS: PIPERACILLIN/TAZOBACTAM 3,375 MG in SODIUM CHLORIDE 0.9% 100 ML IV SCH ×3 (05:03→20:45)
[2022-05-15 05:55] LABS: Basophils % 0.4 % (0.0-0.8); Eosinophils # 0.1 10*3/uL (0.0-0.87); Eosinophils % 1.3 % (0.00-10.9); Hematocrit 33.6 VOL% (42.0-52.0); Hemoglobin 10.8 GM/DL (14.0-18.0); Immature Granulocytes % 1.9 %; Immature Granulocytes Absolute 0.18 #; Lymphocytes # 2.4 10*3/uL (1.4-4.0); Lymphocytes % 24.7 % (21.2-54.2); Mean Corpuscular HGB Conc 32.1 GM/DL (32-36); Mean Corpuscular Volume 89.6 FL (87-102); Mean Platelet Volume 11.4 FL (9.6-12.0); Monocytes # 0.6 10*3/uL (0.11-0.8); Monocytes % 6.3 % (1.7-12.7); Neutrophils % 65.4 % (38.7-73.9); Platelet Count 357 T/CUMM (130-400); Red Blood Count 3.75 MC/CUMM (3.8-5.5); Red Cell Distribution Width 13.4 % (9.3-17.3); White Blood Count 9.57 T/CUMM (4-12)
[2022-05-15 06:23] LABS: Osmolality,Calculated 286.3 MOS/KG (273-304)
[2022-05-15] MEDS: hydroCHLOROthiazide 25 MG TABLET PO SCH (08:56)
[2022-05-15] MEDS: GABAPENTIN 300 MG CAPSULE PO SCH ×3 (08:59→20:43)
[2022-05-15] MEDS: lisinopriL 20 MG TABLET PO SCH (09:01)
[2022-05-15] MEDS: PANTOPRAZOLE 40 MG TABLET PO SCH (09:01)
[2022-05-15] MEDS: ESCITALOPRAM 10 MG TABLET PO SCH (09:02)
[2022-05-15] MEDS: INSULIN LISPRO 100 UNIT/ML SUBCUT SCH ×4 (09:05→20:44)
[2022-05-15] MEDS: INSULIN GLARGINE 100 UNIT/ML SUBCUT SCH (09:06)
[2022-05-15] MEDS: SODIUM HYPOCHLORITE 0.25% IRRIG 473 ML BOTTLE TOP SCH (09:07)
[2022-05-15] MEDS ORDERED: GLUCAGON 1 MG VIAL IM PRN (11:35)
[2022-05-15] MEDS ORDERED: DEXTROSE 50% 25 GM/50 ML VIAL IV PRN (11:35)
[2022-05-15] MEDS: VANCOMYCIN INJ 1,500 MG in SODIUM CHLORIDE 0.9% 500 ML IV SCH (14:00)
[2022-05-15] MEDS: ATORVASTATIN 40 MG TABLET PO SCH (20:43)
[2022-05-15] MEDS: KETOROLAC 30 MG/1 ML VIAL IV PRN (20:45)
[2022-05-16] MEDS: PIPERACILLIN/TAZOBACTAM 3,375 MG in SODIUM CHLORIDE 0.9% 100 ML IV SCH ×3 (04:03→22:06)
[2022-05-16] MEDS: INSULIN LISPRO 100 UNIT/ML SUBCUT SCH ×4 (08:16→22:07)
[2022-05-16] MEDS: amLODIPine 2.5 MG TABLET PO SCH (08:18)
[2022-05-16] MEDS: GABAPENTIN 300 MG CAPSULE PO SCH ×3 (08:18→22:08)
[2022-05-16] MEDS: PANTOPRAZOLE 40 MG TABLET PO SCH (08:18)
[2022-05-16] MEDS: ESCITALOPRAM 10 MG TABLET PO SCH (08:18)
[2022-05-16] MEDS: HYDROmorphone 1 MG/1 ML SYRINGE IV PRN ×3 (08:18→22:00)
[2022-05-16] MEDS: hydroCHLOROthiazide 25 MG TABLET PO SCH (08:18)
[2022-05-16] MEDS: lisinopriL 20 MG TABLET PO SCH (08:18)
[2022-05-16] MEDS: INSULIN GLARGINE 100 UNIT/ML SUBCUT SCH (10:25)
[2022-05-16] MEDS: VANCOMYCIN INJ 1,500 MG in SODIUM CHLORIDE 0.9% 500 ML IV SCH (12:22)
[2022-05-16] MEDS: SODIUM HYPOCHLORITE 0.25% IRRIG 473 ML BOTTLE TOP SCH (13:06)
[2022-05-16 14:04] LABS: Hyaline Casts,Urine 3 /LPF (0-3); Mucus,Urine Occasional /LPF (Occasional); RBC,Urine 4 /HPF (0-4)
[2022-05-16 14:05] LABS: Urine Appearance Clear (Clear); Urine Color Yellow (Yellow)
[2022-05-16 14:06] LABS: Bilirubin,Urine Negative (Negative); Blood, Urine Trace mg/dL (Negative); Glucose,Urine (UA) 100 mg/dL (Negative); Ketones,Urine Negative (Negative); Nitrite,Urine Negative (Negative); Protein,Urine 100 mg/dL (Negative); Urine Specific Gravity 1.025 (1.001-1.035); Urine Urobilinogen >= 8.0 eU/dL (<2.0); Urine pH 6.5 (4.5-8.0)
[2022-05-16] MEDS: ATORVASTATIN 40 MG TABLET PO SCH (22:06)
[2022-05-17] MEDS: PIPERACILLIN/TAZOBACTAM 3,375 MG in SODIUM CHLORIDE 0.9% 100 ML IV SCH ×3 (05:45→22:15)
[2022-05-17] MEDS: HYDROmorphone 1 MG/1 ML SYRINGE IV PRN (08:51)
[2022-05-17] MEDS: INSULIN LISPRO 100 UNIT/ML SUBCUT SCH ×5 (08:51→22:14)
[2022-05-17] MEDS: PANTOPRAZOLE 40 MG TABLET PO SCH (08:52)
[2022-05-17] MEDS: amLODIPine 2.5 MG TABLET PO SCH (08:52)
[2022-05-17] MEDS: ESCITALOPRAM 10 MG TABLET PO SCH (08:52)
[2022-05-17] MEDS: GABAPENTIN 300 MG CAPSULE PO SCH ×3 (08:52→22:11)
[2022-05-17] MEDS: lisinopriL 20 MG TABLET PO SCH (08:53)
[2022-05-17] MEDS: hydroCHLOROthiazide 25 MG TABLET PO SCH (08:53)
[2022-05-17] MEDS: SODIUM HYPOCHLORITE 0.25% IRRIG 473 ML BOTTLE TOP SCH (09:19)
[2022-05-17] MEDS: INSULIN GLARGINE 100 UNIT/ML SUBCUT SCH (09:58)
[2022-05-17] MEDS: VANCOMYCIN INJ 1,500 MG in SODIUM CHLORIDE 0.9% 500 ML IV SCH (15:11)
[2022-05-17] MEDS: ATORVASTATIN 40 MG TABLET PO SCH (22:11)
[2022-05-18] MEDS: PIPERACILLIN/TAZOBACTAM 3,375 MG in SODIUM CHLORIDE 0.9% 100 ML IV SCH ×2 (05:39→12:24)
[2022-05-18] MEDS: INSULIN LISPRO 100 UNIT/ML SUBCUT SCH ×7 (07:40→20:54)
[2022-05-18] MEDS: GABAPENTIN 300 MG CAPSULE PO SCH ×3 (08:10→20:49)
[2022-05-18] MEDS: hydroCHLOROthiazide 25 MG TABLET PO SCH (08:10)
[2022-05-18] MEDS: lisinopriL 20 MG TABLET PO SCH (08:10)
[2022-05-18] MEDS: amLODIPine 2.5 MG TABLET PO SCH (08:10)
[2022-05-18] MEDS: ESCITALOPRAM 10 MG TABLET PO SCH (08:10)
[2022-05-18] MEDS: PANTOPRAZOLE 40 MG TABLET PO SCH (08:10)
[2022-05-18] MEDS: INSULIN GLARGINE 100 UNIT/ML SUBCUT SCH (08:11)
[2022-05-18] MEDS: VANCOMYCIN INJ 1,500 MG in SODIUM CHLORIDE 0.9% 500 ML IV SCH (13:52)
[2022-05-18] MEDS: SODIUM HYPOCHLORITE 0.25% IRRIG 473 ML BOTTLE TOP SCH (13:52)
[2022-05-18] MEDS: ATORVASTATIN 40 MG TABLET PO SCH (20:49)
[2022-05-19] MEDS: amLODIPine 2.5 MG TABLET PO SCH (09:29)
[2022-05-19] MEDS: ESCITALOPRAM 10 MG TABLET PO SCH (09:29)
[2022-05-19] MEDS: GABAPENTIN 300 MG CAPSULE PO SCH ×3 (09:29→22:02)
[2022-05-19] MEDS: PANTOPRAZOLE 40 MG TABLET PO SCH (09:29)
[2022-05-19] MEDS: hydroCHLOROthiazide 25 MG TABLET PO SCH (09:29)
[2022-05-19] MEDS: lisinopriL 20 MG TABLET PO SCH (09:29)
[2022-05-19] MEDS: INSULIN GLARGINE 100 UNIT/ML SUBCUT SCH (09:30)
[2022-05-19] MEDS: INSULIN LISPRO 100 UNIT/ML SUBCUT SCH ×7 (09:30→22:03)
[2022-05-19] MEDS ORDERED: CETIRIZINE 10 MG TABLET PO PRN (16:36)
[2022-05-19] MEDS: ATORVASTATIN 40 MG TABLET PO SCH (22:03)
[2022-05-20 07:37] VITALS: BP 152/84
[2022-05-20] MEDS: INSULIN LISPRO 100 UNIT/ML SUBCUT SCH ×2 (08:36)
[2022-05-20] MEDS: INSULIN GLARGINE 100 UNIT/ML SUBCUT SCH (08:37)
[2022-05-20] MEDS: PANTOPRAZOLE 40 MG TABLET PO SCH (08:38)
[2022-05-20] MEDS: ESCITALOPRAM 10 MG TABLET PO SCH (08:38)
[2022-05-20] MEDS: hydroCHLOROthiazide 25 MG TABLET PO SCH (08:38)
[2022-05-20] MEDS: lisinopriL 20 MG TABLET PO SCH (08:39)
[2022-05-20] MEDS: amLODIPine 2.5 MG TABLET PO SCH (08:39)
[2022-05-20] MEDS: GABAPENTIN 300 MG CAPSULE PO SCH (08:39)
== END 2022-05-20 10:16 | disposition swing bed (61) | DRG 240 ==
LOC: N.ED 10:46 → N.3E 12:51
PROVIDERS: ADMIT Student in an Organized Health Care Education/Training Program; ATTEND Student in an Organized Health Care Education/Training Program